=== PATIENT | female | born 1970 | race Caucasian/White ===

== ENCOUNTER 2018-09-13 18:04 | Emergency (ER) | payer MEDICAID ==
[~2018-09-13] VITALS: Wt 54.4 kg
[~2018-09-13 18:04] MED LIST: AMINOPHYLLIN200 MG PO; Bactrim Ds 8001 TAB PO; CELEXA20 MG PO; CIPRO500 MG PO; DILANTIN PO; FLOMAX0.4 MG PO; GILENYA PO; KEFLEX500 MG PO; MACROBID100 M1 PO; NKHM; PERCOCET 325 MG1 TA5 PO; VICO75300 PO; VICODIN 5/500 505 MG PO; VITAMIN D5000 IU PO; VITAMIN D50000 I1 PO; ZITHROMAX Z PA250 MG PO
[2018-09-13 18:10] VITALS: BP 96/56
== END 2018-09-13 20:11 | disposition home or self-care (01) ==
LOC: ED 18:04
DX: S30.1XXA Contusion of abdominal wall, initial encounter (principal); R09.89 Other specified symptoms and signs involving the circulatory and respiratory systems; G40.909 Epilepsy, unspecified, not intractable, without status epilepticus; F17.200 Nicotine dependence, unspecified, uncomplicated; Z79.899 Other long term (current) drug therapy; X58.XXXA Exposure to other specified factors, initial encounter; Y93.89 Activity, other specified; Y92.89 Other specified places as the place of occurrence of the external cause; Y99.8 Other external cause status

== ENCOUNTER 2021-01-31 09:46 | Emergency (ER) | payer MEDICAID ==
[~2021-01-31] VITALS: Ht 162.5 cm; Wt 64.4 kg
[2021-01-31 09:52] VITALS: BP 123/61
[2021-01-31 10:12] LABS: BASO % 0.5 % (0.0-1.0); EOS # 0.2 10*3/uL (0.0-0.4); EOS % 3.8 % (1.0-4.0); HEMATOCRIT 45.5 % (37.0-47.0); LYMPH # 0.8 10*3/uL (1.3-4.4); LYMPH % 19.9 % (27.0-41.0); MEAN CELL VOLUME 95.6 fl (81.0-99.0); MEAN CORPUSCULAR HGB 31.1 pg (27.0-31.0); MEAN CORPUSCULAR HGB CONC 32.5 g/dl (33.0-37.0); MEAN PLATELET VOLUME 9.8 fl (9.6-12.3); MONO # 0.2 10*3/uL (0.1-1.0); MONO % 6.1 % (3.0-9.0); NEUT # 2.8 10*3/uL (2.3-7.9); NEUT % 69.4 % (47.0-73.0); PLATELET COUNT AUTOMATED 345 10*3/uL (130-400); RED BLOOD COUNT 4.76 10*6/uL (4.10-5.10); RED CELL DISTRI WIDTH 14.1 % (0-14.5)
[2021-01-31 10:30] LABS: ALBUMIN 2.9 gm/dl (3.1-4.5); ALKALINE PHOSPHATASE 127 U/L (45-117); BETA-HCG, QUANT < 1.0 mIU/mL (1-3); BUN 12 mg/dl (7-24); CHLORIDE 107 mmol/L (98-107); CREATININE 0.55 mg/dL (0.55-1.02); LIPASE 81 U/L (73-393); POTASSIUM 4.6 mmol/L (3.5-5.1); SGOT/AST 12 IU/L (3-35); SGPT/ALT 25 U/L (12-78); SODIUM 136 mmol/L (136-145); TOTAL PROTEIN 6.8 gm/dL (6.4-8.2); TROPONIN I < 0.015 ng/ml (<0.045)
[2021-01-31] MEDS ORDERED: CYCLOBENZAPRINE10 MG PO (10:39)
[2021-01-31] MEDS ORDERED: MELOXICAM15 MG PO (10:40)
[2021-01-31] MEDS ORDERED: GILENYA0.5 M1 PO (10:40)
[2021-01-31] MEDS ORDERED: Lopressor25 MG PO (10:41)
[2021-01-31] MEDS ORDERED: BUPROPION HYDR100 MG PO (10:42)
[2021-01-31] MEDS ORDERED: AVPAK EXTENDED100 M1 PO (10:42)
[2021-01-31] MEDS ORDERED: GOOD NEIGHBOR L10 MG PO (10:42)
[2021-01-31] MEDS ORDERED: SENEXON-S 50-81 EACH PO (10:43)
[2021-01-31] MEDS ORDERED: D3-501250 MCG PO (10:44)
== END 2021-01-31 12:28 | disposition home or self-care (01) ==
LOC: ED 09:46
PROVIDERS: Emergency Medicine
DX: R56.9 Unspecified convulsions (principal); Z79.899 Other long term (current) drug therapy; Z98.890 Other specified postprocedural states; Z98.51 Tubal ligation status

== ENCOUNTER 2021-06-16 13:49 | Inpatient (IN) | payer MEDICAID ==
[~2021-06-16] VITALS: Ht 165.1 cm; Wt 66.7 kg
[~2021-06-16 13:49] MED LIST changes: +AVPAK EXTENDED100 M1 PO; +BUPROPION HYDR100 MG PO; +CYCLOBENZAPRINE10 MG PO; +D3-501250 MCG PO; +GILENYA0.5 M1 PO; +GOOD NEIGHBOR L10 MG PO; +Lopressor25 MG PO; +MELOXICAM15 MG PO; +SENEXON-S 50-81 EACH PO
[2021-06-16 13:59] VITALS: BP 107/61
[2021-06-16 14:30] VITALS: BP 112/69
[2021-06-16 14:39] LABS: HEMATOCRIT 42.3 % (37.0-47.0); MEAN CELL VOLUME 93.8 fl (81.0-99.0); MEAN CORPUSCULAR HGB 30.4 pg (27.0-31.0); MEAN CORPUSCULAR HGB CONC 32.4 g/dl (33.0-37.0); MEAN PLATELET VOLUME 9.8 fl (9.6-12.3); PLATELET COUNT AUTOMATED 366 10*3/uL (130-400); RED BLOOD COUNT 4.51 10*6/uL (4.10-5.10); RED CELL DISTRI WIDTH 13.8 % (0-14.5); WHITE BLOOD COUNT 11.8 10*3/uL (4.8-10.8)
[2021-06-16 14:52] LABS: ALKALINE PHOSPHATASE 114 U/L (45-117); BUN 11 mg/dl (7-24); CHLORIDE 107 mmol/L (98-107); CREATININE 0.45 mg/dL (0.55-1.02); POTASSIUM 4.3 mmol/L (3.5-5.1); SGOT/AST 17 IU/L (3-35); SGPT/ALT 40 U/L (12-78); SODIUM 139 mmol/L (136-145); TOTAL PROTEIN 6.1 gm/dL (6.4-8.2)
[2021-06-16 14:56] LABS: TOTAL CELLS COUNTED 100 #CELLS
[2021-06-16 14:57] LABS: PLATELET SUFFICIENCY NORMAL (NORMAL)
[2021-06-16 15:13] LABS: BILIRUBIN Negative (Negative); BLOOD 3+ (Negative); CLARITY Turbid (Clear); COLOR Yellow (Yellow); GLUCOSE Negative (Negative); KETONE Negative (Negative); LEUKO ESTERASE 3+ (Negative); NITRITE Negative (Negative)
[2021-06-16 15:21] LABS: RBC TNTC rbc/hpf (0-2)
[2021-06-16 15:22] LABS: WBC TNTC wbc/hpf (0-5)
[2021-06-16 15:23] LABS: BACTERIA 2+; MUCOUS 1+; TRIP PHOS CRYSTALS 4+
[2021-06-16] MEDS ORDERED: MACROBID100 M1 PO ×2 (15:46)
[2021-06-16 17:01] VITALS: BP 109/54
[2021-06-16] MEDS ORDERED: CELEXA40 MG PO (19:51)
[2021-06-16] MEDS ORDERED: DILANTIN100 MG PO (19:55)
[2021-06-16 20:58] VITALS: BP 117/51
[2021-06-17] VITALS (8 sets, daily range): BP systolic 88–128; BP diastolic 40–71
[2021-06-18] VITALS: BP 94/66
[2021-06-18 08:00] VITALS: BP 95/47
[2021-06-18 12:00] VITALS: BP 109/65
[2021-06-18 15:11] LABS: BILIRUBIN Negative (Negative); BLOOD 3+ (Negative); CLARITY Cloudy (Clear); COLOR Yellow (Yellow); GLUCOSE Negative (Negative); KETONE Trace (Negative); LEUKO ESTERASE 3+ (Negative); NITRITE Negative (Negative); UROBILINOGEN 0.2 E.U./dl (0.0-1.0)
[2021-06-18 15:51] LABS: BACTERIA 3+; EPITHELIAL CELLS 16-20; RBC 51-100 rbc/hpf (0-2); WBC 51-100 wbc/hpf (0-5)
[2021-06-18 16:00] VITALS: BP 101/57
[2021-06-18 20:00] VITALS: BP 93/54
[2021-06-19] VITALS: BP 114/56; BP 88/50
[2021-06-19 06:38] LABS: BASO % 0.6 % (0.0-1.0); EOS # 0.1 10*3/uL (0.0-0.4); EOS % 2.8 % (1.0-4.0); HEMATOCRIT 34.8 % (37.0-47.0); LYMPH # 0.4 10*3/uL (1.3-4.4); LYMPH % 8.4 % (27.0-41.0); MEAN CELL VOLUME 95.1 fl (81.0-99.0); MEAN CORPUSCULAR HGB 30.9 pg (27.0-31.0); MEAN CORPUSCULAR HGB CONC 32.5 g/dl (33.0-37.0); MEAN PLATELET VOLUME 9.9 fl (9.6-12.3); MONO # 0.7 10*3/uL (0.1-1.0); MONO % 14.3 % (3.0-9.0); NEUT # 3.4 10*3/uL (2.3-7.9); NEUT % 73.5 % (47.0-73.0); PLATELET COUNT AUTOMATED 261 10*3/uL (130-400); RED BLOOD COUNT 3.66 10*6/uL (4.10-5.10); WHITE BLOOD COUNT 4.7 10*3/uL (4.8-10.8)
[2021-06-19 06:54] LABS: BUN 10 mg/dl (7-24); CHLORIDE 112 mmol/L (98-107); CREATININE 0.36 mg/dL (0.55-1.02); POTASSIUM 3.8 mmol/L (3.5-5.1); SODIUM 142 mmol/L (136-145)
[2021-06-19 08:00] VITALS: BP 96/61
[2021-06-19 12:00] VITALS: BP 83/51
[2021-06-19 16:00] VITALS: BP 86/58
[2021-06-19] MEDS ORDERED: LEVETIRACETAM500 M3 PO (17:05)
== END 2021-06-19 21:45 | disposition home or self-care (01) | DRG 53 ==
LOC: ED 13:49 → EDHOLD 16:03 → 5E 16:03
PROVIDERS: Emergency Medicine; ADMIT Internal Medicine; ATTEND Internal Medicine
DX: G40.909 Epilepsy, unspecified, not intractable, without status epilepticus (principal); N30.00 Acute cystitis without hematuria; G35 Multiple sclerosis; N20.0 Calculus of kidney; E44.0 Moderate protein-calorie malnutrition; N31.9 Neuromuscular dysfunction of bladder, unspecified; Z98.891 History of uterine scar from previous surgery; I95.9 Hypotension, unspecified; R73.9 Hyperglycemia, unspecified; R82.71 Bacteriuria; Z79.899 Other long term (current) drug therapy; Z68.24 Body mass index [BMI] 24.0-24.9, adult

== ENCOUNTER 2022-03-04 12:24 | Emergency (ER) | payer MEDICAID ==
[~2022-03-04] VITALS: Wt 99.8 kg
[2022-03-04 12:24] VITALS: BP 104/59
[~2022-03-04 12:24] MED LIST changes: +CELEXA40 MG PO; +DILANTIN100 MG PO; +LEVETIRACETAM500 M3 PO
[2022-03-04 14:14] LABS: BASO % 0.4 % (0.0-1.0); EOS # 0.1 10*3/uL (0.0-0.4); HEMATOCRIT 46.6 % (37.0-47.0); LYMPH # 0.5 10*3/uL (1.3-4.4); LYMPH % 5.3 % (27.0-41.0); MEAN CELL VOLUME 90.1 fl (81.0-99.0); MEAN CORPUSCULAR HGB 30.6 pg (27.0-31.0); MEAN CORPUSCULAR HGB CONC 33.9 g/dl (33.0-37.0); MEAN PLATELET VOLUME 9.5 fl (9.6-12.3); MONO % 10.2 % (3.0-9.0); NEUT % 82.8 % (47.0-73.0); PLATELET COUNT AUTOMATED 401 10*3/uL (130-400); RED BLOOD COUNT 5.17 10*6/uL (4.10-5.10); RED CELL DISTRI WIDTH 13.6 % (0-14.5); WHITE BLOOD COUNT 9.6 10*3/uL (4.8-10.8)
[2022-03-04 14:34] LABS: ALKALINE PHOSPHATASE 168 U/L (45-117); BUN 14 mg/dl (7-24); CHLORIDE 111 mmol/L (98-107); CREATININE 0.55 mg/dL (0.55-1.02); SGOT/AST 14 IU/L (3-35); SGPT/ALT 19 U/L (12-78); SODIUM 139 mmol/L (136-145); TOTAL PROTEIN 6.2 gm/dL (6.4-8.2)
[2022-03-04 15:18] LABS: BILIRUBIN Negative (Negative); BLOOD 2+ (Negative); CLARITY Turbid (Clear); COLOR Yellow (Yellow); GLUCOSE Negative (Negative); KETONE Negative (Negative); LEUKO ESTERASE 3+ (Negative); NITRITE Negative (Negative); UROBILINOGEN 0.2 E.U./dl (0.0-1.0)
[2022-03-04 15:48] LABS: EPITHELIAL CELLS TNTC; TRIP PHOS CRYSTALS 2+
[2022-03-04 15:49] LABS: BACTERIA 3+
[2022-03-04] MEDS ORDERED: CITROMA296 ML PO (17:04)
[2022-03-04] MEDS ORDERED: SEPTDS PO (17:23)
== END 2022-03-04 20:47 | disposition home or self-care (01) ==
LOC: ED 12:24
PROVIDERS: Physician Assistant
DX: K59.00 Constipation, unspecified (principal); R33.9 Retention of urine, unspecified; Z98.890 Other specified postprocedural states; Z98.51 Tubal ligation status; Z79.899 Other long term (current) drug therapy

== ENCOUNTER → 2022-06-18 | Outpatient (CLI) | payer MEDICAID ==
[~2022-06-18] MED LIST changes: +CITROMA296 ML PO; +SEPTDS PO
[2022-06-18 11:54] LABS: BASO # 0.1 10*3/uL (0.0-0.1); BASO % 1.3 % (0.0-1.0); EOS # 0.3 10*3/uL (0.0-0.4); EOS % 4.5 % (1.0-4.0); HEMATOCRIT 46.3 % (37.0-47.0); LYMPH # 1.5 10*3/uL (1.3-4.4); LYMPH % 20.7 % (27.0-41.0); MEAN CELL VOLUME 94.1 fl (81.0-99.0); MEAN CORPUSCULAR HGB 31.1 pg (27.0-31.0); MEAN PLATELET VOLUME 9.2 fl (9.6-12.3); MONO # 0.6 10*3/uL (0.1-1.0); NEUT # 4.7 10*3/uL (2.3-7.9); NEUT % 65.4 % (47.0-73.0); PLATELET COUNT AUTOMATED 470 10*3/uL (130-400); RED BLOOD COUNT 4.92 10*6/uL (4.10-5.10); RED CELL DISTRI WIDTH 13.7 % (0-14.5); WHITE BLOOD COUNT 7.2 10*3/uL (4.8-10.8)
[2022-06-18 12:10] LABS: ALKALINE PHOSPHATASE 199 U/L (45-117); SGOT/AST 11 IU/L (3-35); SGPT/ALT 21 U/L (12-78); TOTAL PROTEIN 6.4 gm/dL (6.4-8.2)
[2022-06-18 12:15] LABS: PHENYTOIN (DILANTIN) 10.5 ug/ml (10-20)
[2022-06-19 06:07] LABS: HEPATITIS B SURFACE AG Negative (Negative)
[2022-06-20 15:07] LABS: ATYPICAL PANCA <1:20 titer (Neg:<1:20)
== END ==
LOC: LAB 11:24
PROVIDERS: ATTEND Psychiatry & Neurology Neurology
DX: G35 Multiple sclerosis (principal); G40.309 Generalized idiopathic epilepsy and epileptic syndromes, not intractable, without status epilepticus

== ENCOUNTER 2025-07-31 17:31 | Inpatient (IN) | payer MEDICAID ==
[2025-07-31] VITALS (19 sets, daily range): BP systolic 69–113; BP diastolic 27–69
[~2025-07-31] VITALS: Ht 152.4 cm; Wt 70.9 kg
[~2025-07-31 17:31] MED LIST changes: +BACLOFEN20 M1 PO; +BACLOFEN5 MG PO; +CEPHALEXIN500 M1 PO; +DALVANCE500 MG IV; +DOXYCYCLINE HY100 M3 PO; +FINGOLIMOD PO; +FUROSEMIDE20 M1 PO; +HYDROCODONE-AC1 EAC1 PO; +KEPPRA500 MG PO; +LYVISPAH10 M1 PO; +MEGESTROL400 MG/10 PO; +NATURE'S BLEND F1 MG PO; +REMERON15 M2 PO; +TAGAMET HB200 M1 PO; +Vibra-Tab100 MG PO
[2025-07-31] MEDS ORDERED: SODIUM CHLORIDE 0.9% 1,000 ML IV ONE ×2 (17:55→20:40)
[2025-07-31] MEDS ORDERED: IBUPROFEN 600 MG TAB PO ONE (17:55)
[2025-07-31 18:07] LABS: BILIRUBIN Negative (Negative); BLOOD 2+ (Negative); CLARITY Turbid (Clear); COLOR Yellow (Yellow); KETONE Negative (Negative); LEUKO ESTERASE 3+ (Negative); NITRITE Positive (Negative); PH 8.0 (4.5-8.0); SPECIFIC GRAVITY 1.015 (1.001-1.030); UROBILINOGEN 1.0 E.U./dl (0.0-1.0)
[2025-07-31 18:21] LABS: BASO # 0.0 10*3/uL (0.0-0.1); BASO % 0.3 % (0.0-1.0); EOS # 0.0 10*3/uL (0.0-0.4); EOS % 0.2 % (1.0-4.0); MEAN CELL VOLUME 86.1 fl (81.0-99.0); MEAN CORPUSCULAR HGB 26.6 pg (27.0-31.0); MEAN PLATELET VOLUME 9.7 fl (9.6-12.3); MONO # 0.2 10*3/uL (0.1-1.0); MONO % 3.6 % (3.0-9.0); NEUT # 5.6 10*3/uL (2.3-7.9); NEUT % 87.3 % (47.0-73.0); NUCLEATED RED BLOOD CELL 0.0 % (0.0-0.0); NUCLEATED RED BLOOD CELL 0.0 10*3/uL (0.0-0.0); PLATELET COUNT AUTOMATED 287 10*3/uL (130-400); RED CELL DISTRI WIDTH 19.7 % (0-14.5)
[2025-07-31 18:35] LABS: BUN 27 mg/dl (9-23)
[2025-07-31 18:59] LABS: BACTERIA 4+; RBC 16-20 rbc/hpf (0-2); TRIP PHOS CRYSTALS 1+
[2025-07-31] MEDS ORDERED: ACETAMINOPHEN 650 MG SUPP R ONE (20:05)
[2025-07-31] MEDS ORDERED: ASPIRIN81 M3 PO (20:49)
[2025-07-31] MEDS ORDERED: BISACODYL 5 MG TAB PO PRN (20:50)
[2025-07-31] MEDS ORDERED: Acetaminophen/Hydrocodone 5 MG/325 MG TABLET PO PRN (20:50)
[2025-07-31] MEDS ORDERED: TEMAZEPAM 15 MG CAP PO PRN (20:50)
[2025-07-31] MEDS ORDERED: Ondansetron Hydrochloride 4 MG/2 ML VIAL IV PRN (20:50)
[2025-07-31] MEDS ORDERED: ACETAMINOPHEN 100 ML IV ONE (21:00)
[2025-07-31] MEDS ORDERED: NOREPINEPHRINE BITARTRATE/D5W 250 ML IV SCH (21:35)
[2025-07-31] MEDS ORDERED: Piperacillin Sodium/Tazobact 4.5 GM in SODIUM CHLORIDE 0.9% 100 ML IV SCH (22:00)
[2025-08-01] VITALS (88 sets, daily range): BP systolic 76–123; BP diastolic 34–88
[2025-08-01 01:55] LABS: BILIRUBIN Negative (Negative); BLOOD 2+ (Negative); CLARITY Cloudy (Clear); COLOR Yellow (Yellow); KETONE Negative (Negative); LEUKO ESTERASE 3+ (Negative); NITRITE Positive (Negative); PH 8.0 (4.5-8.0); SPECIFIC GRAVITY 1.020 (1.001-1.030); UROBILINOGEN 1.0 E.U./dl (0.0-1.0)
[2025-08-01 02:06] LABS: BACTERIA 3+; RBC 16-20 rbc/hpf (0-2); WBC 51-100 wbc/hpf (0-5)
[2025-08-01 02:15] LABS: BUN 34 mg/dl (9-23); SGPT/ALT 104 U/L (5-49)
[2025-08-01] MEDS ORDERED: POTASSIUM CHLORIDE IN WATER 100 ML IV SCH (03:00)
[2025-08-01] MEDS ORDERED: Phenylephrine Hydrochloride 250 ML IV SCH (03:30)
[2025-08-01] MEDS ORDERED: SODIUM CHLORIDE 0.9% 1,000 ML IV ONE (03:35)
[2025-08-01] MEDS ORDERED: Lactated Ringer's Solution 1,000 ML IV SCH (03:35)
[2025-08-01 04:14] LABS: MEAN CORPUSCULAR HGB 26.7 pg (27.0-31.0); MEAN PLATELET VOLUME 9.4 fl (9.6-12.3); NUCLEATED RED BLOOD CELL 0.0 % (0.0-0.0); NUCLEATED RED BLOOD CELL 0.0 10*3/uL (0.0-0.0); PLATELET COUNT AUTOMATED 261 10*3/uL (130-400); RED CELL DISTRI WIDTH 19.3 % (0-14.5)
[2025-08-01 04:39] LABS: BUN 34 mg/dl (9-23); FREE T4 0.99 ng/dl (0.89-1.76); LDL CHOLESTEROL 64 mg/dL (9-159)
[2025-08-01 04:43] LABS: MANUAL DIFF REFLEX YES; MEAN CELL VOLUME 82.0 fl (81.0-99.0)
[2025-08-01 04:47] LABS: PLATELET SUFFICIENCY NORMAL (NORMAL)
[2025-08-01] MEDS ORDERED: IOHEXOL 350 MG/ML 100 ML VIAL IV ONE (05:15)
[2025-08-01] MEDS ORDERED: SODIUM CHLORIDE 0.9% 100 ML BAG IV ONE (05:15)
[2025-08-01] MEDS ORDERED: NOREPINEPHRINE BITARTRATE/D5W 250 ML IV SCH (06:20)
[2025-08-01] MEDS ORDERED: Meropenem 50 ML IV SCH ×2 (08:00→18:00)
[2025-08-01 08:12] LABS: VITAMIN D, 25-HYDROXY 28.5 ng/mL (30-100)
[2025-08-01] MEDS ORDERED: Hydrocortisone Sodium Succin 100 MG/2 ML VIAL IV SCH (10:10)
[2025-08-01] MEDS ORDERED: SODIUM CHLORIDE 0.9% 1,000 ML IV SCH (12:45)
[2025-08-01] MEDS ORDERED: LEVETIRACETAM 250 MG TAB PO SCH (22:00)
[2025-08-01] MEDS ORDERED: Phenytoin Sodium, Extended 100 MG CAP PO SCH (22:00)
[2025-08-01] MEDS ORDERED: Mirtazapine 15 MG TAB PO SCH (22:00)
[2025-08-01] MEDS ORDERED: BACLOFEN 10 MG TAB PO SCH (22:00)
[2025-08-02] VITALS (90 sets, daily range): BP systolic 72–119; BP diastolic 31–72
[2025-08-02 06:13] LABS: MEAN CELL VOLUME 81.5 fl (81.0-99.0); MEAN CORPUSCULAR HGB 26.9 pg (27.0-31.0); MEAN PLATELET VOLUME 10.3 fl (9.6-12.3); NUCLEATED RED BLOOD CELL 0.0 % (0.0-0.0); NUCLEATED RED BLOOD CELL 0.0 10*3/uL (0.0-0.0); RED CELL DISTRI WIDTH 19.8 % (0-14.5)
[2025-08-02 06:15] LABS: BUN 26 mg/dl (9-23); SGPT/ALT 61 U/L (5-49)
[2025-08-02 06:19] LABS: PLATELET COUNT AUTOMATED 148 10*3/uL (130-400)
[2025-08-02 06:58] LABS: MANUAL DIFF REFLEX YES
[2025-08-02] MEDS ORDERED: POTASSIUM CHLORIDE 100 ML IV SCH ×2 (07:00→17:00)
[2025-08-02 07:03] LABS: PLATELET SUFFICIENCY NORMAL (NORMAL)
[2025-08-02] MEDS ORDERED: Hydrocortisone Sodium Succin 100 MG/2 ML VIAL IV SCH (08:00)
[2025-08-02] MEDS ORDERED: [UNRECOGNIZED DRUG - OTHER] IV SCH (08:00)
[2025-08-02] MEDS ORDERED: CIMETIDINE 200 MG TAB PO SCH (10:00)
[2025-08-02] MEDS ORDERED: BACLOFEN 10 MG TAB PO SCH (10:00)
[2025-08-02] MEDS ORDERED: Phenytoin Sodium, Extended 100 MG CAP PO SCH (10:00)
[2025-08-02] MEDS ORDERED: CITALOPRAM 20 MG TAB PO SCH (10:00)
[2025-08-02] MEDS ORDERED: ASPIRIN, CHEWABLE 81 MG TAB PO SCH (10:00)
[2025-08-03] VITALS (19 sets, daily range): BP systolic 94–122; BP diastolic 48–79
[2025-08-03 05:50] LABS: BUN 18 mg/dl (9-23); SGPT/ALT 42 U/L (5-49)
[2025-08-03 06:22] LABS: MEAN CELL VOLUME 81.2 fl (81.0-99.0); MEAN CORPUSCULAR HGB 26.1 pg (27.0-31.0); MEAN PLATELET VOLUME 11.3 fl (9.6-12.3); NUCLEATED RED BLOOD CELL 0.0 % (0.0-0.0); NUCLEATED RED BLOOD CELL 0.0 10*3/uL (0.0-0.0); PLATELET COUNT AUTOMATED 120 10*3/uL (130-400); RED CELL DISTRI WIDTH 19.6 % (0-14.5)
[2025-08-03 06:26] LABS: MANUAL DIFF REFLEX YES
[2025-08-03 06:51] LABS: PLATELET SUFFICIENCY LOW (NORMAL)
[2025-08-03] MEDS ORDERED: Cefepime Hydrochloride 2 GM in SODIUM CHLORIDE 0.9% 50 ML IV SCH (10:00)
[2025-08-03] MEDS ORDERED: FOAM BANDAGE 5X5 T ONE (17:58)
[2025-08-04] VITALS: BP 102/65
[2025-08-04 08:00] VITALS: BP 110/59
[2025-08-04 11:49] VITALS: BP 102/61
[2025-08-04 16:00] VITALS: BP 109/68
[2025-08-04 20:00] VITALS: BP 124/71
[2025-08-04] MEDS ORDERED: FOAM BANDAGE 1 EACH BANDAGE T ONE (22:49)
[2025-08-05] VITALS: BP 109/69
[2025-08-05 08:00] VITALS: BP 115/75
[2025-08-05] MEDS ORDERED: CEFEPIME2 GM/100 M IV (10:39)
[2025-08-05 12:00] VITALS: BP 112/72
== END 2025-08-05 12:37 | DRG 466 ==
LOC: ED 17:31 → ICCU 20:11 → EDHOLD 20:11 → ICCU 20:18 → 4E 08-04 18:48
PROVIDERS: Nurse Practitioner Family; ADMIT Internal Medicine; ATTEND Internal Medicine
PROC: 02HV33Z Insertion of Infusion Device into Superior Vena Cava, Percutaneous Approach (ICD-10-PCS; principal; 2025-08-01)
PROC: B548ZZA Ultrasonography of Superior Vena Cava, Guidance (ICD-10-PCS; 2025-08-01)
DX: T83.518A Infection and inflammatory reaction due to other urinary catheter, initial encounter (principal); J96.01 Acute respiratory failure with hypoxia; R65.21 Severe sepsis with septic shock; E43 Unspecified severe protein-calorie malnutrition; J18.9 Pneumonia, unspecified organism; A41.59 Other Gram-negative sepsis; R62.7 Adult failure to thrive; J91.8 Pleural effusion in other conditions classified elsewhere; N13.6 Pyonephrosis; L89.221 Pressure ulcer of left hip, stage 1; D69.6 Thrombocytopenia, unspecified; N30.01 Acute cystitis with hematuria; Z20.822 Contact with and (suspected) exposure to COVID-19; E87.1 Hypo-osmolality and hyponatremia; G40.909 Epilepsy, unspecified, not intractable, without status epilepticus; E87.8 Other disorders of electrolyte and fluid balance, not elsewhere classified; R73.9 Hyperglycemia, unspecified; E66.01 Morbid (severe) obesity due to excess calories; B96.89 Other specified bacterial agents as the cause of diseases classified elsewhere; J98.11 Atelectasis; K21.9 Gastro-esophageal reflux disease without esophagitis; F32.A Depression, unspecified; N31.9 Neuromuscular dysfunction of bladder, unspecified; Z79.899 Other long term (current) drug therapy; Z79.01 Long term (current) use of anticoagulants; Z87.442 Personal history of urinary calculi; Z79.2 Long term (current) use of antibiotics; Z98.891 History of uterine scar from previous surgery; Z80.8 Family history of malignant neoplasm of other organs or systems; Y83.8 Other surgical procedures as the cause of abnormal reaction of the patient, or of later complication, without mention of misadventure at the time of the procedure; Y92.89 Other specified places as the place of occurrence of the external cause; Z68.30 Body mass index [BMI] 30.0-30.9, adult